=== PATIENT | male | born 1940 | race Caucasian/White ===

== ENCOUNTER 2021-01-03 11:20 | Observation (INO) ==
[2021-01-03 11:35] VITALS: BMI 26.7
--- NOTE | 2021-01-03 11:40 | DR.RPMALE ---
Rectal pain, Male PCP Primary Care Physician: kamara Complaint Chief Complaint:: rectal bleeding and incontience of bowel and bladder. had colonoscopy with polpy removal on this past sunday. since then has had the above problems. has raw sensation but not pain Source History Provided: Patient and Family Member Mode of Arrival Mode of Arrival: Ambulatory [facility] Past Medical History: Yes Past Medical History: Hypertension Past Surgical History: Yes Surgical History: Tonsillectomy Past Surgical History Comment: colonscopy and polyp, vascetomy, prostate ca procedure Family History History of Family Medical Conditions: Yes Family Medical History: Diabetes Mellitus, Cancer, GA and Coronary Artery Disease Social History Does any household member use tobacco: No Alcohol Use: None Do you use any recreational Drugs:: No Lives With: Family Lives Where: Home Travel Risk Coronavirus risk:travel/contact w/high risk person: No Has patient experienced Coronavirus symptoms: No Infectious screening In the last 2 months have you had wt loss of >10#?: NO Have you had fever, night sweats or hemotysis?: No Have you traveled outside the country in the last 6 months?: No Isolation: Standard PE, MALE Vital Signs Vitals: Temperature 99.4 F Pulse Rate 73 Respiratory Rate 16 Blood Pressure 168/82 O2 Sat by Pulse Oximetry 95 ROR Labs Reviewed Result Diagrams: 01/03/21 12:07 01/03/21 12:07 Laboratory: WBC 9.3 X10^3/uL (3.6-10.0) 01/03/21 12:07 RBC 5.08 X10^6/uL (4.7-6.0) 01/03/21 12:07 Hgb 14.9 g/dL (13.5-18.0) 01/03/21 12:07 Hct 44.0 % (42.0-54.0) 01/03/21 12:07 MCV 86.6 fL (80.0-100.0) 01/03/21 12:07 MCH 29.4 pg (27.0-34.0) 01/03/21 12:07 MCHC 33.9 g/dL (33.0-35.0) 01/03/21 12:07 RDW 15.7 % (11.6-16.5) 01/03/21 12:07 Plt Count 211 X10^3/uL (150.0-450.0) 01/03/21 12:07 MPV 7.3 fL (7.4-11.0) L 01/03/21 12:07 Neut % (Auto) 76.2 % (42.0-75.0) H 01/03/21 12:07 Lymph % (Auto) 12.3 % (21.0-51.0) L 01/03/21 12:07 Quay % (Auto) 10.9 % (0.0-13.0) 01/03/21 12:07 Eos % (Auto) 0.0 % (0.9-2.9) L 01/03/21 12:07 Baso % (Auto) 0.6 % (0.2-1.0) 01/03/21 12:07 Neut # (Auto) 7.1 x10^3/uL (2.2-4.8) H 01/03/21 12:07 Lymph # (Auto) 1.1 X10^3/uL (1.3-2.9) L 01/03/21 12:07 Quay # (Auto) 1.0 x10^3/uL (0.3-0.8) H 01/03/21 12:07 Eos # (Auto) 0.0 x10^3/uL (0.0-0.2) 01/03/21 12:07 Baso # (Auto) 0.1 X10^3/uL (0.0-0.1) 01/03/21 12:07 Absolute Nucleated RBC 0.1 /100WBC 01/03/21 12:07 Sodium 144 mmol/L (136-145) 01/03/21 12:07 Corrected Sodium 144 mmol/L (136-145) 01/03/21 12:07 Potassium 3.9 mmol/L (3.5-5.1) 01/03/21 12:07 Chloride 107 mmol/L (98-107) 01/03/21 12:07 Carbon Dioxide 28.9 mmol/L (21-32) 01/03/21 12:07 BUN 20 mg/dL (7-18) H 01/03/21 12:07 Creatinine 1.71 mg/dL (0.70-1.30) H 01/03/21 12:07 Est GFR (MDRD) Af Amer 50 (>60) L 01/03/21 12:07 Est GFR (MDRD) Non-Af 41 (>60) L 01/03/21 12:07 Glucose 115 mg/dL (65-99) H 01/03/21 12:07 Calcium 8.6 mg/dL (8.5-10.1) 01/03/21 12:07 Corrected Calcium TNP 01/03/21 12:07 Total Bilirubin 0.70 mg/dL (0.2-1.0) 01/03/21 12:07 AST 22 Units/L (15-37) 01/03/21 12:07 ALT 23 Units/L (12-78) 01/03/21 12:07 Alkaline Phosphatase 47 Units/L (46-116) 01/03/21 12:07 Total Protein 6.5 g/dL (6.4-8.2) 01/03/21 12:07 Albumin 3.5 g/dL (3.4-5.0) 01/03/21 12:07 Globulin 3.0 g/dL (2.5-4.5) 01/03/21 12:07 Albumin/Globulin Ratio 1.2 Ratio (1.1-2.1) 01/03/21 12:07 Amylase 29 Units/L (25-115) 01/03/21 12:07 Lipase 105 Units/L (73-393) 01/03/21 12:07 Specimen Type Random urine 01/03/21 12:07 Urine Color Yellow (YELLOW) 01/03/21 12:07 Urine Appearance Clear (CLEAR) 01/03/21 12:07 Urine pH 8.0 (5.0 - 8.0) 01/03/21 12:07 Ur Specific [place] 1.015 (1.000-1.030) 01/03/21 12:07 Urine Protein 2+ (NEGATIVE) 01/03/21 12:07 Urine Glucose (UA) Negative (NEGATIVE) 01/03/21 12:07 Urine Ketones 1+ (NEGATIVE) 01/03/21 12:07 Urine Occult Blood Negative (NEGATIVE) 01/03/21 12:07 Urine Nitrite Negative (NEGATIVE) 01/03/21 12:07 Urine Bilirubin Negative (NEGATIVE) 01/03/21 12:07 Urine Urobilinogen Normal (NORMAL) 01/03/21 12:07 Ur Leukocyte Esterase 1+ (NEGATIVE) 01/03/21 12:07 Urine RBC None seen /HPF (0-3) 01/03/21 12:07 Urine WBC 0-2 /HPF (0-5) 01/03/21 12:07 Ur Squamous Epith Cells Rare /HPF (NEGATIVE) 01/03/21 12:07 Amorphous Sediment 1+ /HPF (NEGATIVE) 01/03/21 12:07 Urine Bacteria Trace /HPF (NEGATIVE) 01/03/21 12:07 Ur Culture Indicated? No/not indicated 01/03/21 12:07 Opioid Opioid Risk Tool Age ([place] box if 16-45): No History of Preadolescent Sexual Abuse: No Total: 0 Total Score Risk Category: Low Risk Copyright: Maximino PARRA predicting aberrant behaviors Instructions Forms: Precautions for COVID19 Patient Portal Social Distancing
[2021-01-03 12:15] LABS: BILIRUBIN,URINE NEGATIVE (NEGATIVE); BLOOD/HEMOGLOBIN,URINE NEGATIVE (NEGATIVE); GLUCOSE, URINE NEGATIVE (NEGATIVE); KETONES,URINE 1+ (NEGATIVE); LEUKOCYTE ESTERASE ,URINE 1+ (NEGATIVE); NITRITES,URINE NEGATIVE (NEGATIVE); PROTEIN,URINE 2+ (NEGATIVE); UROBILINOGEN,URINE NORMAL (NORMAL)
[2021-01-03 12:20] LABS: AMORPHOUS SEDIMENT,UR 1+ /HPF (NEGATIVE); APPEARANCE,URINE CLEAR (CLEAR); BACTERIA,URINE TRACE /HPF (NEGATIVE); COLOR,URINE YELLOW (YELLOW); RBC,URINE NONE SEEN /HPF (0-3); SQUAMOUS EPITHELIAL CELL,UR RARE /HPF (NEGATIVE)
[2021-01-03 12:22] LABS: BASOPHILS # (AUTO) 0.1 X10^3/uL (0.0-0.1); BASOPHILS % (AUTO) 0.6 % (0.2-1.0); HEMOGLOBIN 14.9 g/dL (13.5-18.0); LYMPHOCYTES # (AUTO) 1.1 X10^3/uL (1.3-2.9); LYMPHOCYTES % (AUTO) 12.3 % (21.0-51.0); MEAN CORPUSCULAR HEMOGLOBIN 29.4 pg (27.0-34.0); MEAN CORPUSCULAR HGB CONC 33.9 g/dL (33.0-35.0); MEAN CORPUSCULAR VOLUME 86.6 fL (80.0-100.0); MEAN PLATELET VOLUME 7.3 fL (7.4-11.0); MONOCYTES % (AUTO) 10.9 % (0.0-13.0); NEUTROPHILS # (AUTO) 7.1 x10^3/uL (2.2-4.8); NEUTROPHILS % (AUTO) 76.2 % (42.0-75.0); PLATELET COUNT 211 X10^3/uL (150.0-450.0); RED BLOOD COUNT 5.08 X10^6/uL (4.7-6.0); RED CELL DISTRIBUTION WIDTH 15.7 % (11.6-16.5); WHITE BLOOD COUNT 9.3 X10^3/uL (3.6-10.0)
[2021-01-03] MEDS ORDERED: NS 1000 ML 1,000 ML ONE (12:34)
[2021-01-03 12:35] LABS: ALANINE AMINOTRANSFERASE 23 Units/L (12-78); ALBUMIN 3.5 g/dL (3.4-5.0); ALKALINE PHOSPHATASE 47 Units/L (46-116); AMYLASE 29 Units/L (25-115); ASPARTATE AMINO TRANSFERASE 22 Units/L (15-37); BLOOD UREA NITROGEN 20 mg/dL (7-18); CALCIUM 8.6 mg/dL (8.5-10.1); CARBON DIOXIDE 28.9 mmol/L (21-32); CHLORIDE 107 mmol/L (98-107); COR NA(FOR HYPERGLY) 144 mmol/L (136-145); CREATININE 1.71 mg/dL (0.70-1.30); LIPASE 105 Units/L (73-393); SODIUM 144 mmol/L (136-145); TOTAL PROTEIN 6.5 g/dL (6.4-8.2); eGFR NON BLACK RACES 41 (>60)
[2021-01-03] MEDS: NS 1000 ML 1,000 ML IV SCH ×3 (12:52→20:24)
[2021-01-03] MEDS ORDERED: PROTONIX INJ 40 MG VIAL ONE (14:40)
[2021-01-03] MEDS ORDERED: NS 100 ML IV 100 ML IV ONE (14:41)
[2021-01-03] MEDS: PROTONIX INJ 40 MG VIAL 80 MG in NS 100 ML IV 80 ML IV SCH ×2 (14:45→22:46)
[2021-01-03] MEDS ORDERED: NORCO 5/325 MG TAB PO PRN (15:12)
--- NOTE | 2021-01-03 15:12 | CT ---
HISTORYABD PAIN, RECTAL BLEEDING. HX OF RECENT COLONOSCOPY WITH POLYPECTOMY LAST WEEKSTUDYABDOMEN/PELVIS W/O CONCOMPARISONNoneTECHNIQUENon-contrasted axial CT images of the abdomen and pelvis were obtained and reformatted into coronal and sagittal planes for further evaluation. Enteric contrast was also administered.Radiation dose: 464.20 mGy-cm total DLPFINDINGSLung bases are clear.Small bilateral layering pleural effusions with adjacent atelectasis.Stomach appears normal.Solid visceral organs of the upper abdomen are unremarkable.Calcified gallstone in the dependent portion of the gallbladder with no imaging findings of acute cholecystitis.Atherosclerotic changes to the abdominal aorta and iliac vessels without aneurysm.Unremarkable appearance of the kidneys.No hydronephrosis, hydroureter or ureteral calculus.Unremarkable appearance of the urinary bladder.Mild rectal wall thickening with adjacent mild perirectal edema.Otherwise, the large and small bowel are unremarkable in appearance.Brachytherapy seeds in the prostate gland.Otherwise, the imaged portion of the reproductive structures are unremarkable.No evidence of acute appendicitis.No pneumoperitoneum.No significant fluid collection.No adenopathy.No acute osseous abnormality.Moderate to severe degenerative disc disease in the imaged portion of the thoracolumbar spine without vertebral body height loss.Moderate to severe facet degenerative changes in the lower lumbar spine.IMPRESSION1. Mild rectal wall thickening with mild perirectal edema could represent infectious, ischemic or inflammatory colitis.2. Cholelithiasis with no imaging findings of acute cholecystitis.Electronically signed by: Alexei Martel (January 03, 2021 15:10:24)
[2021-01-03] MEDS: FLAGYL TAB 500 MG PO SCH ×2 (15:27→22:45)
[2021-01-03 15:36] LABS: CRYPTOSPORIDIUM PARVUM ANTIGEN NEGATIVE (NEGATIVE); GIARDIA LAMBLIA ANTIGEN NEGATIVE (NEGATIVE)
[2021-01-03] MEDS ORDERED: BETADINE SOLN TOP ONE (16:57)
[2021-01-03] MEDS: IMODIUM CAP 2 MG PO PRN ×2 (17:02→20:25)
[2021-01-03] MEDS: COREG TAB 25 MG PO SCH (20:25)
[2021-01-03] MEDS ORDERED: BETADINE SOLN TOP SCH (22:00)
[2021-01-04] MEDS: PROTONIX INJ 40 MG VIAL 80 MG in NS 100 ML IV 80 ML IV SCH ×3 (00:14→10:04)
[2021-01-04] MEDS: NS 1000 ML 1,000 ML IV SCH ×4 (00:32→13:52)
[2021-01-04] MEDS: IMODIUM CAP 2 MG PO PRN ×2 (05:59→13:52)
[2021-01-04 06:06] LABS: BASOPHILS % (AUTO) 0.1 % (0.2-1.0); EOSINOPHILS % (AUTO) 0.2 % (0.9-2.9); HEMATOCRIT 39.9 % (42.0-54.0); HEMOGLOBIN 13.3 g/dL (13.5-18.0); LYMPHOCYTES # (AUTO) 1.1 X10^3/uL (1.3-2.9); LYMPHOCYTES % (AUTO) 15.4 % (21.0-51.0); MEAN CORPUSCULAR HGB CONC 33.4 g/dL (33.0-35.0); MEAN CORPUSCULAR VOLUME 86.9 fL (80.0-100.0); MEAN PLATELET VOLUME 7.4 fL (7.4-11.0); MONOCYTES % (AUTO) 13.9 % (0.0-13.0); NEUTROPHILS # (AUTO) 4.8 x10^3/uL (2.2-4.8); NEUTROPHILS % (AUTO) 70.4 % (42.0-75.0); PLATELET COUNT 195 X10^3/uL (150.0-450.0); RED BLOOD COUNT 4.59 X10^6/uL (4.7-6.0); WHITE BLOOD COUNT 6.9 X10^3/uL (3.6-10.0)
[2021-01-04] MEDS: FLAGYL TAB 500 MG PO SCH (06:12)
[2021-01-04 06:15] LABS: ALANINE AMINOTRANSFERASE 20 Units/L (12-78); ALBUMIN 2.8 g/dL (3.4-5.0); ALKALINE PHOSPHATASE 36 Units/L (46-116); ASPARTATE AMINO TRANSFERASE 20 Units/L (15-37); BLOOD UREA NITROGEN 16 mg/dL (7-18); CALCIUM 7.4 mg/dL (8.5-10.1); CHLORIDE 110 mmol/L (98-107); COR CA(FOR HYPOALB) 8.4 mg/dL (8.5-10.1); SODIUM 145 mmol/L (136-145); TOTAL PROTEIN 5.4 g/dL (6.4-8.2); eGFR NON BLACK RACES 48 (>60)
[2021-01-04] MEDS ORDERED: K-DUR TAB 20 MEQ PO ONE (08:28)
[2021-01-04] MEDS ORDERED: MAGNESIUM SULFATE 1 GRAM/100 mL PREMIX 1 GM/100 ML BAG IV PRN (08:30)
[2021-01-04] MEDS ORDERED: POTASSIUM CHL 40 MEQ/NS 0.45% 500 ML IV PRN (08:30)
[2021-01-04] MEDS ORDERED: K-DUR TAB 20 MEQ PO PRN (08:30)
[2021-01-04] MEDS ORDERED: POTASSIUM CHLORIDE LIQ 20 MEQ UDC PO PRN (08:30)
[2021-01-04] MEDS ORDERED: MICRO K EXTEN CAP 10 MEQ PO PRN (08:30)
[2021-01-04] MEDS ORDERED: KLOR-CON PO PRN (08:30)
[2021-01-04] MEDS ORDERED: K-RIDER 10 MEQ/NS 100 ML 10 MEQ/100 ML BAG IV PRN (08:30)
[2021-01-04] MEDS ORDERED: POTASSIUM CHL 60 MEQ/NS 0.45% 500 ML IV PRN (08:30)
[2021-01-04] MEDS: COREG TAB 25 MG PO SCH (08:33)
[2021-01-04] MEDS ORDERED: AMOXIL CAP 500 MG PO SCH (09:00)
[2021-01-04] MEDS ORDERED: MINOXIDIL PO SCH (09:00)
[2021-01-04] MEDS ORDERED: PROTONIX TAB 40 MG PO SCH (09:00)
[2021-01-04] MEDS ORDERED: THYROID 30 MG PO SCH (09:00)
[2021-01-04] MEDS ORDERED: BIAXIN TAB 500 MG PO SCH (09:00)
[2021-01-04] MEDS ORDERED: ZADITOR EYE DROPS EACHEYE PRN (09:18)
[2021-01-04] MEDS ORDERED: RHINOCORT ALLERGY NASAL SPRAY ENOSTRIL SCH (10:00)
[2021-01-04 12:07] VITALS: BP 113/58
== END 2021-01-04 15:10 | disposition home or self-care (01) ==
LOC: ER 11:20 → MED/SURG 11:20
PROVIDERS: ADMIT Surgery; ATTEND Obstetrics & Gynecology Obstetrics
DX: I10 Essential (primary) hypertension; R10.84 Generalized abdominal pain; H10.10 Acute atopic conjunctivitis, unspecified eye; K62.5 Hemorrhage of anus and rectum; R94.4 Abnormal results of kidney function studies; J30.89 Other allergic rhinitis; R15.9 Full incontinence of feces; B96.81 Helicobacter pylori [H. pylori] as the cause of diseases classified elsewhere; Z98.890 Other specified postprocedural states; Z85.46 Personal history of malignant neoplasm of prostate; Z20.822 Contact with and (suspected) exposure to COVID-19; N39.498 Other specified urinary incontinence; R19.7 Diarrhea, unspecified

== ENCOUNTER 2021-01-09 07:58 | Observation (INO) ==
[2021-01-09 08:56] LABS: BASOPHILS % (AUTO) 0.6 % (0.2-1.0); EOSINOPHILS % (AUTO) 0.2 % (0.9-2.9); HEMATOCRIT 36.5 % (42.0-54.0); HEMOGLOBIN 12.5 g/dL (13.5-18.0); LYMPHOCYTES % (AUTO) 12.5 % (21.0-51.0); MEAN CORPUSCULAR HEMOGLOBIN 29.6 pg (27.0-34.0); MEAN CORPUSCULAR HGB CONC 34.3 g/dL (33.0-35.0); MEAN CORPUSCULAR VOLUME 86.2 fL (80.0-100.0); MEAN PLATELET VOLUME 7.5 fL (7.4-11.0); MONOCYTES # (AUTO) 0.9 x10^3/uL (0.3-0.8); MONOCYTES % (AUTO) 10.7 % (0.0-13.0); NEUTROPHILS # (AUTO) 6.2 x10^3/uL (2.2-4.8); PLATELET COUNT 237 X10^3/uL (150.0-450.0); RED BLOOD COUNT 4.24 X10^6/uL (4.7-6.0); RED CELL DISTRIBUTION WIDTH 15.3 % (11.6-16.5); WHITE BLOOD COUNT 8.1 X10^3/uL (3.6-10.0)
[2021-01-09 09:05] LABS: ALANINE AMINOTRANSFERASE 24 Units/L (12-78); ALBUMIN 3.5 g/dL (3.4-5.0); ALKALINE PHOSPHATASE 41 Units/L (46-116); ASPARTATE AMINO TRANSFERASE 29 Units/L (15-37); BLOOD UREA NITROGEN 29 mg/dL (7-18); CALCIUM 8.4 mg/dL (8.5-10.1); CARBON DIOXIDE 29.6 mmol/L (21-32); CHLORIDE 103 mmol/L (98-107); CREATININE 2.18 mg/dL (0.70-1.30); SODIUM 143 mmol/L (136-145); TOTAL PROTEIN 6.4 g/dL (6.4-8.2); eGFR NON BLACK RACES 31 (>60)
[2021-01-09] MEDS: NS 1000 ML 1,000 ML IV SCH ×2 (09:15→22:45)
[2021-01-09] MEDS ORDERED: LEVAQUIN PREMIX IV 500 MG 500 MG/100 ML BAG IV SCH (10:00)
[2021-01-09] MEDS ORDERED: LR 1000 ML IV 1,000 ML IV ONE (10:59)
[2021-01-09 11:11] VITALS: BMI 26.7
[2021-01-09 12:43] LABS: APPEARANCE,URINE CLEAR (CLEAR); BILIRUBIN,URINE NEGATIVE (NEGATIVE); BLOOD/HEMOGLOBIN,URINE NEGATIVE (NEGATIVE); COLOR,URINE YELLOW (YELLOW); GLUCOSE, URINE NEGATIVE (NEGATIVE); KETONES,URINE 3+ (NEGATIVE); LEUKOCYTE ESTERASE ,URINE NEGATIVE (NEGATIVE); NITRITES,URINE NEGATIVE (NEGATIVE); PROTEIN,URINE NEGATIVE (NEGATIVE); UROBILINOGEN,URINE NORMAL (NORMAL)
[2021-01-10 06:04] LABS: BASOPHILS % (AUTO) 0.4 % (0.2-1.0); EOSINOPHILS % (AUTO) 0.1 % (0.9-2.9); HEMATOCRIT 32.8 % (42.0-54.0); HEMOGLOBIN 11.2 g/dL (13.5-18.0); LYMPHOCYTES # (AUTO) 1.1 X10^3/uL (1.3-2.9); LYMPHOCYTES % (AUTO) 12.8 % (21.0-51.0); MEAN CORPUSCULAR HEMOGLOBIN 29.7 pg (27.0-34.0); MEAN CORPUSCULAR HGB CONC 34.3 g/dL (33.0-35.0); MEAN CORPUSCULAR VOLUME 86.4 fL (80.0-100.0); MEAN PLATELET VOLUME 7.6 fL (7.4-11.0); MONOCYTES % (AUTO) 11.9 % (0.0-13.0); NEUTROPHILS # (AUTO) 6.3 x10^3/uL (2.2-4.8); NEUTROPHILS % (AUTO) 74.8 % (42.0-75.0); PLATELET COUNT 234 X10^3/uL (150.0-450.0); RED BLOOD COUNT 3.79 X10^6/uL (4.7-6.0); RED CELL DISTRIBUTION WIDTH 15.2 % (11.6-16.5); WHITE BLOOD COUNT 8.4 X10^3/uL (3.6-10.0)
[2021-01-10 06:27] LABS: ALANINE AMINOTRANSFERASE 20 Units/L (12-78); ALBUMIN 2.8 g/dL (3.4-5.0); ALKALINE PHOSPHATASE 33 Units/L (46-116); ASPARTATE AMINO TRANSFERASE 23 Units/L (15-37); BLOOD UREA NITROGEN 25 mg/dL (7-18); CALCIUM 7.9 mg/dL (8.5-10.1); CHLORIDE 107 mmol/L (98-107); COR CA(FOR HYPOALB) 8.9 mg/dL (8.5-10.1); CREATININE 2.03 mg/dL (0.70-1.30); SODIUM 143 mmol/L (136-145); TOTAL PROTEIN 5.4 g/dL (6.4-8.2); eGFR NON BLACK RACES 34 (>60)
[2021-01-10] MEDS: NS 1000 ML 1,000 ML IV SCH ×2 (07:03→09:30)
[2021-01-10] MEDS: LEVAQUIN PREMIX IV 250 MG 250 MG/50 ML BAG IV SCH (08:19)
[2021-01-10] MEDS: COREG TAB 25 MG PO SCH ×2 (09:49→20:36)
[2021-01-10] MEDS: MINOXIDIL PO SCH (09:49)
[2021-01-10] MEDS: ZADITOR EYE DROPS EACHEYE SCH ×2 (10:24→20:37)
[2021-01-10] MEDS: PATIENT'S HOME MEDICATION PO SCH (10:25)
[2021-01-10] MEDS ORDERED: LR 1000 ML IV 1,000 ML IV ONE (11:44)
[2021-01-10] MEDS ORDERED: NS IV NR ×2 (11:52)
[2021-01-10] MEDS ORDERED: VENOFER IV NR ×2 (11:52)
[2021-01-10] MEDS ORDERED: VENOFER IV ONE (13:08)
[2021-01-10] MEDS ORDERED: REQUIP PO SCH (21:00)
[2021-01-10] MEDS ORDERED: FLOMAX PO SCH (21:00)
[2021-01-11] MEDS: NS 1000 ML 1,000 ML IV SCH ×2 (04:12→08:17)
[2021-01-11] MEDS: PATIENT'S HOME MEDICATION PO SCH (05:37)
[2021-01-11 06:08] LABS: BASOPHILS % (AUTO) 0.1 % (0.2-1.0); EOSINOPHILS % (AUTO) 0.3 % (0.9-2.9); HEMATOCRIT 28.5 % (42.0-54.0); HEMOGLOBIN 9.8 g/dL (13.5-18.0); LYMPHOCYTES % (AUTO) 15.9 % (21.0-51.0); MEAN CORPUSCULAR HEMOGLOBIN 29.8 pg (27.0-34.0); MEAN CORPUSCULAR HGB CONC 34.6 g/dL (33.0-35.0); MEAN CORPUSCULAR VOLUME 86.3 fL (80.0-100.0); MEAN PLATELET VOLUME 7.7 fL (7.4-11.0); MONOCYTES % (AUTO) 15.9 % (0.0-13.0); NEUTROPHILS # (AUTO) 4.3 x10^3/uL (2.2-4.8); NEUTROPHILS % (AUTO) 67.8 % (42.0-75.0); PLATELET COUNT 200 X10^3/uL (150.0-450.0); RED CELL DISTRIBUTION WIDTH 15.9 % (11.6-16.5); WHITE BLOOD COUNT 6.4 X10^3/uL (3.6-10.0)
[2021-01-11 06:26] LABS: ALANINE AMINOTRANSFERASE 17 Units/L (12-78); ALBUMIN 2.4 g/dL (3.4-5.0); ALKALINE PHOSPHATASE 32 Units/L (46-116); ASPARTATE AMINO TRANSFERASE 19 Units/L (15-37); BLOOD UREA NITROGEN 19 mg/dL (7-18); CALCIUM 7.5 mg/dL (8.5-10.1); CARBON DIOXIDE 26.9 mmol/L (21-32); CHLORIDE 112 mmol/L (98-107); COR CA(FOR HYPOALB) 8.8 mg/dL (8.5-10.1); CREATININE 1.83 mg/dL (0.70-1.30); SODIUM 145 mmol/L (136-145); TOTAL PROTEIN 4.7 g/dL (6.4-8.2); eGFR NON BLACK RACES 38 (>60)
[2021-01-11] MEDS ORDERED: NS 100 ML IV 100 ML with VENOFER 400 MG IV NR ×2 (08:10)
[2021-01-11] MEDS: LEVAQUIN PREMIX IV 250 MG 250 MG/50 ML BAG IV SCH (08:11)
[2021-01-11] MEDS: MINOXIDIL PO SCH (08:12)
[2021-01-11] MEDS: COREG TAB 25 MG PO SCH (08:12)
[2021-01-11] MEDS: ZADITOR EYE DROPS EACHEYE SCH (08:13)
[2021-01-11 17:09] VITALS: BP 146/65
== END 2021-01-11 18:00 | disposition home or self-care (01) ==
LOC: MED/SURG
PROVIDERS: ADMIT Surgery; ATTEND Surgery
DX: K64.8 Other hemorrhoids; Z85.46 Personal history of malignant neoplasm of prostate; Z98.890 Other specified postprocedural states; E86.0 Dehydration; E03.8 Other specified hypothyroidism; I10 Essential (primary) hypertension; K62.5 Hemorrhage of anus and rectum; N39.498 Other specified urinary incontinence; Z92.3 Personal history of irradiation; G25.81 Restless legs syndrome